=== PATIENT | male | born 1980 | race Caucasian/White ===

== ENCOUNTER 2021-08-12 10:57 | Outpatient (REF) | payer OTHER, SELFPAY ==
[2021-08-12 12:36] LABS: COVID-19 Test Negative (Negative)
== END 2021-08-12 10:58 | disposition home or self-care (01) ==
LOC: HO.LAB 10:57
PROVIDERS: Visit Provider Internal Medicine
DX: Z20.822 Contact with and (suspected) exposure to COVID-19 (principal)
CPT/HCPCS: 36415; 87635; C9803

== ENCOUNTER 2022-08-02 10:05 | Outpatient (REF) | payer OTHER, SELFPAY ==
[2022-08-02 10:47] LABS: COVID-19 Test Negative (Negative); IDNOW Serial# BCCEAD1C
== END 2022-08-02 10:06 | disposition home or self-care (01) ==
LOC: HO.LAB 10:05
PROVIDERS: Visit Provider Internal Medicine
DX: Z20.822 Contact with and (suspected) exposure to COVID-19 (principal)
CPT/HCPCS: 87635; C9803

== ENCOUNTER 2022-08-23 11:08 | Outpatient (REF) | payer OTHER, SELFPAY ==
[2022-08-23 11:33] LABS: COVID-19 Test Positive (Negative); IDNOW Serial# 16C4AD1C
== END 2022-08-23 11:09 | disposition home or self-care (01) ==
LOC: HO.LAB 11:08
PROVIDERS: Visit Provider Internal Medicine
DX: Z20.822 Contact with and (suspected) exposure to COVID-19 (principal)
CPT/HCPCS: 87635; C9803